=== PATIENT | female | born 1970 | race Caucasian/White ===

== ENCOUNTER 2017-04-13 22:56 | Emergency (ER) | payer MEDICAID ==
[~2017-04-13] VITALS: Ht 157.5 cm; Wt 85.0 kg
[2017-04-13 22:57] VITALS: BP 171/103; TEMP 98.2
[2017-04-13] MEDS ORDERED: ATIVAN 0.50.5 MG/TAB PO (23:02)
[2017-04-14] MEDS ORDERED: PREDNISONE20 MG PO
[2017-04-14 01:40] VITALS: PULSE 89
== END 2017-04-14 01:41 | disposition home or self-care (01) ==
LOC: COL.ER 22:56
DX: L50.9 Urticaria, unspecified (principal); T45.0X5A Adverse effect of antiallergic and antiemetic drugs, initial encounter
CPT/HCPCS: J0171; J7512

== ENCOUNTER → 2019-03-14 | Outpatient (CLI) | payer MEDICAID ==
[~2019-03-14] MED LIST: ATIVAN 0.50.5 MG/TAB PO; PREDNISONE20 MG PO
== END ==
LOC: MHCPAIN 14:06
DX: G89.29 Other chronic pain (principal); M54.12 Radiculopathy, cervical region; M47.812 Spondylosis without myelopathy or radiculopathy, cervical region
CPT/HCPCS: G0463

== ENCOUNTER → 2019-03-21 | Outpatient (CLI) | payer MEDICAID | LOC: MC.RAD 07:30 | DX: Z12.31 Encounter for screening mammogram for malignant neoplasm of breast (principal) ==

== ENCOUNTER 2019-04-22 10:00 | Outpatient (RCR) | payer MEDICAID ==
[2019-05-04] MEDS ORDERED: PREDNISONE20 MG PO (01:20)
== END 2019-05-04 09:53 | disposition home or self-care (01) ==
LOC: WSC 10:00
DX: M47.22 Other spondylosis with radiculopathy, cervical region (principal); G89.29 Other chronic pain

== ENCOUNTER 2019-05-03 22:21 | Emergency (ER) | payer MEDICAID ==
[~2019-05-03] VITALS: Ht 157.5 cm; Wt 84.1 kg
[2019-05-03 22:35] VITALS: BP 145/78; TEMP 98.6
[2019-05-04] MEDS ORDERED: PREDNISONE20 MG PO (01:20)
[2019-05-04 01:52] VITALS: PULSE 85
== END 2019-05-04 01:52 | disposition home or self-care (01) ==
LOC: COL.ER 22:21
DX: L25.9 Unspecified contact dermatitis, unspecified cause (principal); F41.9 Anxiety disorder, unspecified; Z87.891 Personal history of nicotine dependence
CPT/HCPCS: J7512

== ENCOUNTER 2019-06-26 21:24 | Emergency (ER) | payer MEDICAID ==
[~2019-06-26] VITALS: Ht 157.5 cm; Wt 84.7 kg
[2019-06-26 21:28] VITALS: BP 154/87; TEMP 98.5
[2019-06-26] MEDS ORDERED: CEPHALEXIN500 M1 PO (22:25)
[2019-06-26] MEDS ORDERED: BACTRIM DS 8001 TAB PO (22:25)
[2019-06-26 22:47] VITALS: PULSE 86
== END 2019-06-26 22:50 | disposition home or self-care (01) ==
LOC: COL.ER 21:24
DX: L05.01 Pilonidal cyst with abscess (principal)

== ENCOUNTER → 2020-06-25 | Outpatient (CLI) | payer MEDICAID ==
[~2020-06-25] MED LIST changes: +BACTRIM DS 8001 TAB PO; +CEPHALEXIN500 M1 PO
== END ==
LOC: COL.RAD 07:45
DX: K21.9 Gastro-esophageal reflux disease without esophagitis (principal)
CPT/HCPCS: A9541

== ENCOUNTER 2020-07-26 14:45 | Outpatient (RCR) | payer MEDICAID | END 2020-07-30 | disposition home or self-care (01) | LOC: MKS.ESL.PT | DX: M54.5 Low back pain (principal); M54.2 Cervicalgia | CPT/HCPCS: G0283-GP ==

== ENCOUNTER 2020-08-01 17:27 | Outpatient (RCR) | payer MEDICAID ==
[2020-08-09] MEDS ORDERED: LIDODERM 5% PATC1 EA TP (16:02)
[2020-08-09] MEDS ORDERED: TESSALON P100 MG/CAP PO (16:02)
[2020-08-09] MEDS ORDERED: MEDROL 4MG DOSPA4 MG PO (16:02)
== END 2020-10-30 ==
LOC: MKS.ESL.PT
DX: M54.2 Cervicalgia (principal); M54.5 Low back pain

== ENCOUNTER 2020-08-09 14:54 | Emergency (ER) | payer MEDICAID ==
[~2020-08-09] VITALS: Ht 157.5 cm; Wt 83.2 kg
[2020-08-09 15:04] VITALS: TEMP 98.5
[2020-08-09] MEDS ORDERED: LIDODERM 5% PATC1 EA TP (16:02)
[2020-08-09] MEDS ORDERED: TESSALON P100 MG/CAP PO (16:02)
[2020-08-09] MEDS ORDERED: MEDROL 4MG DOSPA4 MG PO (16:02)
[2020-08-09 16:04] VITALS: BP 140/76; PULSE 81
== END 2020-08-09 16:15 | disposition home or self-care (01) ==
LOC: COL.ER 14:54
DX: U07.1 COVID-19 (principal); M54.5 Low back pain; Z88.6 Allergy status to analgesic agent; Z87.891 Personal history of nicotine dependence
CPT/HCPCS: J1885

== ENCOUNTER 2021-03-02 14:30 | Emergency (ER) | payer MEDICAID ==
[~2021-03-02] VITALS: Ht 157.5 cm; Wt 77.3 kg
[~2021-03-02 14:30] MED LIST changes: +LIDODERM 5% PATC1 EA TP; +MEDROL 4MG DOSPA4 MG PO; +TESSALON P100 MG/CAP PO
[2021-03-02 14:47] VITALS: TEMP 97.3
[2021-03-02 15:35] LABS: BASO # 0.1 (0.0-0.2); BASO % 0.8 % (0.0-2.0); EOS # 0.1 (0.0-0.7); EOS % 1.1 % (0-4.0); GRAN # 5.9 (1.4-6.5); GRAN % 54.2 % (42.2-75.2); HEMATOCRIT 43.4 % (37.0-47.0); HEMOGLOBIN 14.5 g/dl (12.5-16.0); LYMPH # 4.1 (1.2-3.4); LYMPH % 37.9 % (20.0-51.0); MEAN CELL VOLUME 87 fl (80.0-100.0); MEAN CORPUSCULAR HEMOGLOBIN 29 pg (27.0-31.0); MEAN CORPUSCULAR HGB CONC 33 g/dl (33.0-37.0); MEAN PLATELET VOLUME 10.2 fl (7.4-10.4); MONO # 0.6 (0.1-0.6); MONO % 5.6 % (1.7-9.3); PLATELET COUNT 452 K/mm3 (130-400); RED BLOOD COUNT 4.98 M/mm3 (4.10-5.30); REDCELL DISTRIBUTION WIDTH-CV 13.5 % (11.5-14.5)
[2021-03-02 15:57] LABS: ALBUMIN 4.8 gm/dL (3.5-5.0); BILIRUBIN,TOTAL 0.4 mg/dL (0.0-1.0); C-REACTIVE PROTEIN 1.4 mg/dL (0.0-0.9); CALCIUM 9.9 mg/dL (8.4-10.2); CREATININE, serum 0.72 (0.52-1.25); POTASSIUM 3.6 mmol/L (3.4-5.0); TOTAL PROTEIN 8.8 gm/dL (6.4-8.2)
[2021-03-02 17:43] LABS: COLLECTION METHOD CLEAN CATCH
[2021-03-02 18:01] LABS: MUCOUS Present /lpf; PH 8 (5-8); URINE APPEARANCE Hazy; URINE BACTERIA None Seen /hpf; URINE BILIRUBIN Negative (NEGATIVE); URINE BLOOD 1+ (NEGATIVE); URINE COLOR Yellow; URINE GLUCOSE Negative (NEGATIVE); URINE KETONE Trace (NEGATIVE); URINE LEUKOCYTE ESTERASE Trace (NEGATIVE); URINE NITRATE Negative (NEGATIVE); URINE PROTEIN(semi-quant) 1+ (NEGATIVE); URINE UROBILINOGEN Negative (NEGATIVE)
[2021-03-02] MEDS ORDERED: NORCO 325 MG-51 TAB PO (18:05)
[2021-03-02] MEDS ORDERED: OMNICEF 300MG300 MG PO (18:05)
[2021-03-02 18:50] VITALS: BP 128/80; PULSE 89
== END 2021-03-02 19:03 | disposition home or self-care (01) ==
LOC: COL.ER 14:30
PROVIDERS: Family Medicine
DX: N20.2 Calculus of kidney with calculus of ureter (principal); N39.0 Urinary tract infection, site not specified
CPT/HCPCS: J1885; J2270; J2405; J7120; Q9967

== ENCOUNTER 2021-10-08 05:33 | Emergency (ER) | payer MEDICAID ==
[~2021-10-08] VITALS: Ht 157.5 cm; Wt 81.8 kg
[~2021-10-08 05:33] MED LIST changes: +NORCO 325 MG-51 TAB PO; +OMNICEF 300MG300 MG PO
[2021-10-08 06:34] LABS: BASO # 0.1 K/mm3 (0.0-0.2); BASO % 1.2 % (0.0-2.0); EOS # 0.1 K/mm3 (0.0-0.7); EOS % 1.2 % (0.0-4.0); GRAN # 1.9 K/mm3 (1.4-6.5); GRAN % 44.7 % (42.2-75.2); HEMATOCRIT 42.6 % (37.0-47.0); HEMOGLOBIN 14.7 g/dl (12.5-16.0); LYMPH # 1.7 K/mm3 (1.2-3.4); LYMPH % 39.9 % (20.0-51.0); MEAN CELL VOLUME 84 fl (80.0-100.0); MEAN CORPUSCULAR HEMOGLOBIN 29 pg (27-31); MEAN CORPUSCULAR HGB CONC 35 g/dl (33.0-37.0); MEAN PLATELET VOLUME 10.1 fl (7.4-10.4); MONO # 0.5 K/mm3 (0.1-0.6); MONO % 12.5 % (1.7-9.3); PLATELET COUNT 338 K/mm3 (130-400); RED BLOOD COUNT 5.05 M/mm3 (4.10-5.30); REDCELL DISTRIBUTION WIDTH-CV 13.2 % (11.5-14.5)
[2021-10-08 06:56] LABS: ALBUMIN 4.1 gm/dL (3.5-5.0); BILIRUBIN,TOTAL 0.3 mg/dL (0.2-1.2); CALCIUM 9.1 mg/dL (8.4-10.2); CREATININE, serum 0.81 mg/dL (0.57-1.11); POTASSIUM 3.5 mmol/L (3.5-4.5); TOTAL PROTEIN 8.6 gm/dL (6.2-8.1)
[2021-10-08 07:21] VITALS: BP 153/85; PULSE 81; TEMP 98
== END 2021-10-08 07:21 | disposition home or self-care (01) ==
LOC: COL.ER 05:33
PROVIDERS: Personal Emergency Response Attendant
DX: T44.991A Poisoning by other drug primarily affecting the autonomic nervous system, accidental (unintentional), initial encounter (principal)
CPT/HCPCS: J7030